=== PATIENT | male | born 1995 | race Caucasian/White ===

== ENCOUNTER 2017-01-24 23:47 | Emergency (ER) | payer OTHER ==
[~2017-01-24] VITALS: Ht 170.2 cm; Wt 73.2 kg
[2017-01-25 02:44] VITALS: BP 123/85
[2017-01-26 13:59] LABS: RAPID PLASMA REAGIN Non Reactive (Non Reactive)
== END 2017-01-25 02:44 | disposition home or self-care (01) ==
LOC: ED 23:47
PROVIDERS: Emergency Medicine
DX: A64 Unspecified sexually transmitted disease (principal)
CPT/HCPCS: 87491; 87591; J0696